=== PATIENT | male | born 1980 | race Caucasian/White ===

== ENCOUNTER → 2018-04-15 | Outpatient (REF) | payer BC ==
[2018-04-15 16:38] LABS: PLATELET COUNT, AUTOMATED 158 K/uL (150-450)
== END ==
PROVIDERS: ATTEND Nurse Practitioner Family
DX: R19.7 Diarrhea, unspecified (principal); R11.11 Vomiting without nausea; R10.9 Unspecified abdominal pain
CPT/HCPCS: 82040; 82247; 82274; 82310; 82374; 82435; 82565; 82947; 83630; 84075; 84132; 84155; 84295; 84450; 84460; 84520; 85025; 87177; 87324; 87449

== ENCOUNTER → 2018-04-15 | Outpatient (CLI) | payer BC ==
[~2018-04-15] MED LIST: IOPAMIDOL 76% 75 ML INFUS BTL 75 ML ONE
--- NOTE | 2018-04-15 18:55 | RADIOLOGY IMAGING REPORT ---
FACILITY: [facility] [place] PATIENT NAME: Ana Nava : 1980 MR: [id number] V: [id number] EXAM DATE: ORDERING PHYSICIAN: JUNIOR MONDRAGON TECHNOLOGIST: Location: [facility] [place] Patient: Ana Nava : 1980 Visit/Account:[id number] Date of Sevice: 04/15/2018 CT abdomen and pelvis with IV contrast Indication: Right-sided abdomen pain Comparison: None available. . Technique: Axial CT images were obtained through the abdomen and pelvis during injection of nonioni c iodinated intravenous contrast. Reformatted coronal and sagittal images were also obtained. One of the following dose optimization techniques was utilized in the performance of this exam: Autom ated exposure control; adjustment of the mA and/or kV according to the patient's size; or use of an i terative reconstruction technique. Specific details can be referenced in the facility's radiology C T exam operational policy. Contrast: 75 ml of Isovue-370 IV contrast. Findings: Lower lung reyes: Limited views lower lung field are unremarkable. Liver: The posterior left lobe liver does show 1.9 cm hypodense lesion which is not a simple cyst. Th e liver shows no other focal abnormality. Biliary: Gallbladder appears unremarkable as well as the intra and extra hepatic biliary system. Pancreas: Normal appearance. Spleen: Normal appearance. Adrenal glands: Unremarkable. Kidneys / retroperitoneum: No evidence of nephrolithiasis or hydronephrosis. No focal abnormality. Bowel / peritoneum / mesenteries: The small bowel right abdomen does show mild diffuse wall thickenin g without focal abnormality or obstruction. The remaining small bowel is unremarkable. There are a fe w diverticula seen along the descending and sigmoid colon without pericolonic inflammation. The colon shows no other focal abnormality. The appendix is normal. The stomach is unremarkable. No free air, free fluid, fluid collections or areas of inflammation. Lymph node assessment: No pathologic adenopathy identified. Pelvic structures: Appear unremarkable. Vessels: No significant atherosclerotic calcifications seen throughout a nonaneurysmal abdominal aort a and branches. Musculoskeletal / Body wall: No acute or aggressive osseous abnormality. Hemangioma in the T11 verteb ral body. Small sclerotic foci seen left femoral neck is likely a bone island. IMPRESSION: 1. The small bowel within the right abdomen does show mild wall thickening diffusely without focal ab normality or obstruction. This may represent early enteritis. 2. Diverticulosis without radiographic indication diverticulitis. 3. Left lobe liver does show 1.9 cm hypodense lesion which is not simple cyst. This is indeterminate on this exam. Suggest a follow-up nonemergent MRI of the liver, without and with contrast, for furthe r evaluation. I called report to JUNIOR MONDRAGON at 04/15/2018 6:50 PM. Report Dictated By: Bart Washington at 04/15/2018 6:41 PM Report E-Signed By: Bart Washington at 04/15/2018 6:51 PM WSN:[id number]
== END ==
LOC: CT 17:46
PROVIDERS: ATTEND Nurse Practitioner Family
DX: K57.90 Diverticulosis of intestine, part unspecified, without perforation or abscess without bleeding (principal); R16.0 Hepatomegaly, not elsewhere classified
CPT/HCPCS: 74177; Q9967

== ENCOUNTER → 2018-08-05 | Outpatient (CLI) | payer BC ==
[~2018-08-05] MED LIST changes: +GADOBENATE 529MG/1ML 15ML VIAL IVP ONE; -IOPAMIDOL 76% 75 ML INFUS BTL 75 ML ONE; +NS(*) 0.9% 50 ML BAG 50 ML ONE
--- NOTE | 2018-08-05 17:26 | RADIOLOGY IMAGING REPORT ---
FACILITY: [facility] PATIENT NAME: Ana Nava : 1980 MR: [id number] V: [id number] EXAM DATE: ORDERING PHYSICIAN: YAMILE SPICER TECHNOLOGIST: Location: [facility] - [place], [place] Patient: Ana Nava : 1980 Visit/Account:[id number] Date of Sevice: 08/05/2018 ABDOMEN W W/O CONTRAST HISTORY: Liver mass, abnormal CT scan TECHNIQUE: Multiplanar multisequence magnetic resonance imaging of the abdomen with intravenous cont rast. CONTRAST: 15 cc of MultiHance COMPARISON: CT scan 04/15/2018 FINDINGS: Liver: Measures 17.2 cm in craniocaudal length. On the delayed enhanced images, there is a subtle hy pointense lesion segment IVb of the liver (series 20, image 32) which likely represents benign focal fat adjacent to gallbladder fossa. No concerning liver lesions are seen. Hepatic veins and portal v eins are patent. Gallbladder and bile ducts: Negative. The common bile duct measures 3 mm. Spleen: Slightly prominent measures 14.5 cm in length but uniform in signal intensity. Adrenal glands: Negative. Pancreas: Negative. Kidneys: Negative. Vessels: Normal Bowel/peritoneum/mesentery: Negative Lymph nodes: Negative Bones/soft tissues: T12 vertebral body hemangioma is noted which is increased on T2 and demonstrates enhancement. Prior CT scan demonstrates classic imaging features for a benign vertebral body hemangi sebastian. Visualized lung bases: Negative Visualized pelvis: Negative Other findings: None significant IMPRESSION: 1. 1 cm benign-appearing area of focal fat segment IVb of the liver corresponding to the abnormality seen on CT scan. No concerning liver lesions are seen. 2. Mildly enlarged spleen measuring 14.5 cm in length, likely benign. 3. T12 benign vertebral body hemangioma. Report Dictated By: Bart Stoddard MD at 08/05/2018 5:09 PM Report E-Signed By: Bart Stoddard MD at 08/05/2018 5:22 PM WSN:[id number]
== END ==
LOC: MRI 07:14
PROVIDERS: ATTEND Family Medicine
DX: R16.1 Splenomegaly, not elsewhere classified (principal); R16.0 Hepatomegaly, not elsewhere classified; D18.09 Hemangioma of other sites
CPT/HCPCS: 74183; A9577; J7050

== ENCOUNTER 2019-02-08 14:23 | Emergency (ER) | payer SELFPAY ==
--- NOTE | 2019-02-08 14:25 | ER Report ---
History and Physical Time Seen By MD: 14:24 (PRICE CHUNG MD) HPI/ROS CHIEF COMPLAINT: Fever, body aches, sinus pressure HISTORY OF PRESENT ILLNESS: The patient is an otherwise healthy 39-year-old male who states that for the past 3 weeks she's been having fevers and body aches no cough or shortness of breath noted is also complaining of headache and some ear pain. Today he states that he starting to feel pressure behind his right eye. He denies any neck or back pain. He denies any new rashes. There is no history of recent travel or recent antibiotic use. No known ill contacts at home. Patient denies any diarrhea however states that he did have some vomiting last evening. also states patient has been having night sweats. Patient last took acetaminophen at 10 AM. REVIEW OF SYSTEMS: Constitutional: Cyclic fevers Eyes: No discharge. ENT: Ear pain and sinus pressure Cardiovascular: No chest pain, no palpitations. Respiratory: No cough, no shortness of breath. Gastrointestinal: No abdominal pain, no vomiting. Genitourinary: No hematuria. Musculoskeletal: Body aches Skin: No rashes. Neurological: Headache (PRICE CHUNG MD) Allergies: Coded Allergies: No Known Drug Allergies (Unverified , 02/08/19) Past Medical/Surgical History Noncontributory towards this chief complaint (PRICE CHUNG MD) Constitutional Vital Sign - Last 24 Hours 02/08/19 14:27 Temp 98.4 Pulse 103 Resp 24 B/P (MAP) 139/91 Pulse Ox 93 O2 Delivery Room Air (LAURORA,PATRICIA V DO) Physical Exam General/Constitutional: Patient is awake, alert, nontoxic and in no acute re spiratory distress. Head: Normocephalic and atraumatic. Eyes: Conjunctival clear, Pupils are equal and reactive to light. Extraocular muscles are intact and symmetrical. Sclera are clear and anicteric. Ears: Unable to measure eyes the right TM secondary to cerumen impaction, left TM appears clear. Nares shows some boggy indurated turbinates with some purulent discharge. Oropharyngeal: Mucous membranes are moist. There is no pharyngeal erythema or exudate. There are no palatal petechiae. Uvula is midline and symmetrical. Neck: Supple, no adenopathy. Cardiovascular: Heart is regular rate and rhythm without audible murmurs, rubs or gallops. Pulmonary: Lungs are clear to auscultation bilaterally. There are no wheezes, rales, or rhonchi. Chest rise is symmetrical Abdomen: Soft, nontender, no guarding or peritoneal signs. Extremities: No gross deformities, No peripheral cyanosis. Able to move all 4 extremities. Neuro: Alert and oriented X3, Skin: No rashes, skin is warm dry and well perfused. (PRICE CHUNG MD) Medical Decision Making Data Points Result Diagram: 02/08/19 1517 02/08/19 1517 Laboratory Hematology Test 02/08/19 00:00 02/08/19 15:17 02/08/19 16:43 02/08/19 17:14 Influenza Virus Type A (PCR) Negative (NEGATIVE) Influenza Virus Type B (PCR) Negative (NEGATIVE) Red Blood Count 4.64 M/uL (4.00-5.60) Mean Corpuscular Volume 82.1 fL (80.0-96.0) Mean Corpuscular Hemoglobin 26.9 pg (26.0-33.0) Mean Corpuscular Hemoglobin Concent 32.7 g/dL (32.0-36.0) Red Cell Distribution Width 13.6 % (11.5-14.5) Mean Platelet Volume 7.0 fL (7.2-11.1) Neutrophils (%) (Auto) 73.9 % (39.4-72.5) Lymphocytes (%) (Auto) 9.1 % (17.6-49.6) Monocytes (%) (Auto) 12.7 % (4.1-12.4) Eosinophils (%) (Auto) 3.3 % (0.4-6.7) Basophils (%) (Auto) 1.0 % (0.3-1.4) Nucleated RBC Relative Count (auto) 0.0 /100WBC Neutrophils # (Auto) 7.0 K/uL (2.0-7.4) Lymphocytes # (Auto) 0.9 K/uL (1.3-3.6) Monocytes # (Auto) 1.2 K/uL (0.3-1.0) Eosinophils # (Auto) 0.3 K/uL (0.0-0.5) Basophils # (Auto) 0.1 K/uL (0.0-0.1) Nucleated RBC Absolute Count (auto) 0.00 K/uL Sodium Level 138 mmol/L (137-145) Potassium Level 4.0 mmol/L (3.5-5.0) Chloride Level 101 mmol/L (98-107) Carbon Dioxide Level 30 mmol/L (22-30) Blood Urea Nitrogen 17 mg/dl (9-21) Creatinine 0.70 mg/dl (0.66-1.25) Glomerular Filtration Rate Calc > 60.0 Random Glucose 129 mg/dl (75-110) Calcium Level 8.7 mg/dl (8.4-10.2) Total Bilirubin < 0.1 mg/dl (0.2-1.3) Aspartate Amino Transf (AST/SGOT) 27 U/L (0-35) Alanine Aminotransferase (ALT/SGPT) 59 U/L (0-56) Alkaline Phosphatase 93 U/L (0-126) Total Protein 7.0 g/dl (6.3-8.2) Albumin 3.6 g/dl (3.5-5.0) Urine Color Yellow Urine Clarity Clear Urine pH 6.0 pH (4.8-9.5) Urine Specific [place] 1.026 Urine Protein Negative mg/dL (NEGATIVE) Urine Glucose (UA) Negative mg/dL (NEGATIVE) Urine Ketones Negative mg/dL (NEGATIVE) Urine Blood Negative (NEGATIVE) Urine Nitrite Negative (NEGATIVE) Urine Bilirubin Negative (NEGATIVE) Urine Urobilinogen Negative mg/dL (0.2-1.9) Urine Leukocyte Esterase Negative (NEGATIVE) Urine RBC 4 /HPF (0-2/HPF) Urine WBC 1 /HPF (0-5/HPF) Urine Squamous Epithelial Cells None /LPF (</=FEW) Urine Bacteria Negative /HPF (NONE-FEW) Urine Mucus Few /HPF (NONE-FEW) Monoscreen Negative (NEGATIVE) Chemistry Test 02/08/19 00:00 02/08/19 15:17 02/08/19 16:43 02/08/19 17:14 Influenza Virus Type A (PCR) Negative (NEGATIVE) Influenza Virus Type B (PCR) Negative (NEGATIVE) White Blood Count 9.5 k/uL (4.5-11.0) Red Blood Count 4.64 M/uL (4.00-5.60) Hemoglobin 12.5 g/dL (14.0-18.0) Hematocrit 38.1 % (42.0-52.0) Mean Corpuscular Volume 82.1 fL (80.0-96.0) Mean Corpuscular Hemoglobin 26.9 pg (26.0-33.0) Mean Corpuscular Hemoglobin Concent 32.7 g/dL (32.0-36.0) Red Cell Distribution Width 13.6 % (11.5-14.5) Platelet Count 297 K/uL (150-450) Mean Platelet Volume 7.0 fL (7.2-11.1) Neutrophils (%) (Auto) 73.9 % (39.4-72.5) Lymphocytes (%) (Auto) 9.1 % (17.6-49.6) Monocytes (%) (Auto) 12.7 % (4.1-12.4) Eosinophils (%) (Auto) 3.3 % (0.4-6.7) Basophils (%) (Auto) 1.0 % (0.3-1.4) Nucleated RBC Relative Count (auto) 0.0 /100WBC Neutrophils # (Auto) 7.0 K/uL (2.0-7.4) Lymphocytes # (Auto) 0.9 K/uL (1.3-3.6) Monocytes # (Auto) 1.2 K/uL (0.3-1.0) Eosinophils # (Auto) 0.3 K/uL (0.0-0.5) Basophils # (Auto) 0.1 K/uL (0.0-0.1) Nucleated RBC Absolute Count (auto) 0.00 K/uL Glomerular Filtration Rate Calc > 60.0 Calcium Level 8.7 mg/dl (8.4-10.2) Total Bilirubin < 0.1 mg/dl (0.2-1.3) Aspartate Amino Transf (AST/SGOT) 27 U/L (0-35) Alanine Aminotransferase (ALT/SGPT) 59 U/L (0-56) Alkaline Phosphatase 93 U/L (0-126) Total Protein 7.0 g/dl (6.3-8.2) Albumin 3.6 g/dl (3.5-5.0) Urine Color Yellow Urine Clarity Clear Urine pH 6.0 pH (4.8-9.5) Urine Specific [place] 1.026 Urine Protein Negative mg/dL (NEGATIVE) Urine Glucose (UA) Negative mg/dL (NEGATIVE) Urine Ketones Negative mg/dL (NEGATIVE) Urine Blood Negative (NEGATIVE) Urine Nitrite Negative (NEGATIVE) Urine Bilirubin Negative (NEGATIVE) Urine Urobilinogen Negative mg/dL (0.2-1.9) Urine Leukocyte Esterase Negative (NEGATIVE) Urine RBC 4 /HPF (0-2/HPF) Urine WBC 1 /HPF (0-5/HPF) Urine Squamous Epithelial Cells None /LPF (</=FEW) Urine Bacteria Negative /HPF (NONE-FEW) Urine Mucus Few /HPF (NONE-FEW) Monoscreen Negative (NEGATIVE) Urinalysis Test 02/08/19 16:43 Urine Color Yellow Urine Clarity Clear Urine pH 6.0 pH (4.8-9.5) Urine Specific [place] 1.026 Urine Protein Negative mg/dL (NEGATIVE) Urine Glucose (UA) Negative mg/dL (NEGATIVE) Urine Ketones Negative mg/dL (NEGATIVE) Urine Blood Negative (NEGATIVE) Urine Nitrite Negative (NEGATIVE) Urine Bilirubin Negative (NEGATIVE) Urine Urobilinogen Negative mg/dL (0.2-1.9) Urine Leukocyte Esterase Negative (NEGATIVE) Urine RBC 4 /HPF (0-2/HPF) Urine WBC 1 /HPF (0-5/HPF) Urine Squamous Epithelial Cells None /LPF (</=FEW) Urine Bacteria Negative /HPF (NONE-FEW) Urine Mucus Few /HPF (NONE-FEW) (PATRICIA CAMEJO DO) ED Course/Re-evaluation Clinical Indication for ER IV: IV Access ED Course 02/08/2019 2:45:52 pm in with report of febrile illness for the past 3 weeks. There was a recent travel to [facility] prior to the onset of symptoms. There was contact with the child that had influenza and bronchitis-like symptoms. Patient has had persistent symptoms for the past 3 weeks. We'll check CBC CMP influenza screen chest x-ray urinalysis and CT of the sinuses. Decision to Disposition Date: Feb 08, 2019 Decision to Disposition Time: 17:00 (PRICE CHUNG MD) ED Course 02/08/2019 5:24:13 pm Pt signed out to me pending CT and chest xray. Both images were stable. Reexamined the patient and discussed his symptoms. Pt sta elsie his symptoms started about 3 weeks ago with muscle aches. Then developed fevers, headaches, nasal congestion. Stats that symptoms started a few days prior to his trip to [place]. Pt currently has FUO. Will obtain blood cultures. will also obtain lyme titer and [place] tick fever ([place] fever) cultures as well. Pt as no known rash or tick bite however symptoms could be related. Pt will need close follow up with pcp. Called the lab to determine how to order test or [place] tick fever. Lab gave me the code # for the test and had me order it under [facility] [place]. 02/08/2019 5:40:42 pm Spoke with patient and he is aware that we have tests that are pending. will follow up. Decision to Disposition Date: Feb 08, 2019 Decision to Disposition Time: 17:41 (PATRICIA CAMEJO DO) Depart Departure Latest Vital Signs Vital Signs Date Time Temp Pulse Resp B/P (MAP) Pulse Ox O2 Delivery O2 Flow Rate FiO2 02/08/19 14:27 98.4 103 24 139/91 93 Room Air (PATRICIA CAMEJO DO) Impression: Primary Impression: Fever of unknown origin Condition: Condition Unchanged Disposition: HOME OR SELF-CARE Patient Instructions: Fever in Adults (ED) Additional Instructions: Your blood work in the emergency room was stable. We do have blood cultures pending. We also sent off tick borne diseases ([place] tick fever/[place] tick and lyme ds) which are pending. Follow up with your doctor. Return if symptoms worsen prior to seeing your doctor. PRICE CHUNG MD Feb 08, 2019 14:25 PATRICIA CAMEJO DO Feb 08, 2019 17:41
[2019-02-08 14:27] VITALS: BP 139/91
[2019-02-08] MEDS ORDERED: NS(*) 0.9% 1000 ML BAG 1,000 ML IV ONE (14:46)
[2019-02-08] MEDS ORDERED: ONDANSETRON 4 MG/2 ML VIAL IVP ONE (14:50)
[2019-02-08] MEDS ORDERED: KETOROLAC 15 MG/ML VIAL IVP ONE (14:50)
[2019-02-08 15:25] LABS: PLATELET COUNT, AUTOMATED 297 K/uL (150-450)
--- NOTE | 2019-02-08 16:23 | RADIOLOGY IMAGING REPORT ---
FACILITY: [facility] - [place], [place] PATIENT NAME: Ana Nava : 1980 MR: [id number] V: [id number] EXAM DATE: ORDERING PHYSICIAN: PRICE CHUNG TECHNOLOGIST: Location: [facility] Patient: Ana Nava : 1980 Visit/Account:[id number] Date of Sevice: 02/08/2019 Examination: CHEST PA LAT Comparison: None. History: Fever. Findings: Cardiac and hilar contour size is within normal limits. No consolidation, nodule, or peribronchial inflammation. No pneumothorax, edema, or effusion. Osseous structures are intact. IMPRESSION: Negative chest. Report Dictated By: Anthony Mckinley MD at 02/08/2019 4:18 PM Report E-Signed By: Anthony Mckinley MD at 02/08/2019 4:19 PM WSN:[id number]
--- NOTE | 2019-02-08 16:29 | RADIOLOGY IMAGING REPORT ---
FACILITY: [facility] PATIENT NAME: Ana Nava : 1980 MR: [id number] V: [id number] EXAM DATE: ORDERING PHYSICIAN: PRICE CHUNG TECHNOLOGIST: [place] [facility] [place] Patient: Ana Nava : 1980 Visit/Account:[id number] Date of Sevice: 02/08/2019 Examination: CT SINUS W/O CON Comparison: None. History: Fever and sinus pressure. Procedure: Multiplanar noncontrast CT of the paranasal sinuses. One of the following dose optimization techniques was utilized in the performance of this exam: Autom ated exposure control; adjustment of the mA and/or kV according to the patient's size; or use of an i terative reconstruction technique. Specific details can be referenced in the facility's radiology C T exam operational policy. Findings: The frontal sinuses, ethmoid air cells, sphenoid sinuses, and maxillary sinuses are clear a nd well aerated. The frontal recesses and ostiomeatal units are widely patent. The mastoid air cells are well aerated. Mild rightward deviation of the bony nasal septum with a smal l right-sided nasal septal spine. The nasal passage is otherwise unremarkable. No fractures identified. Temporomandibular joint alignment is within normal limits. No mass effect in the visualized brain. Globes and orbital contents are unremarkable. Visualized faci al soft tissues are unremarkable. IMPRESSION: Negative CT of the paranasal sinuses. Report Dictated By: Anthony Mckinley MD at 02/08/2019 4:20 PM Report E-Signed By: Anthony Mckinley MD at 02/08/2019 4:26 PM WSN:[id number]
== END 2019-02-08 18:17 | disposition home or self-care (01) ==
LOC: ER 14:26
DX: R50.9 Fever, unspecified (principal)
CPT/HCPCS: 70486; 71046; 81001; 85025; 86308; 86618; 87040; 87502; 87797; 96361; 96374; 96375; 99284; J1885; J2405; J7030; 82040; 82247; 82310; 82374; 82435; 82565; 82947; 84075; 84132; 84155; 84295; 84450; 84460; 84520

== ENCOUNTER → 2019-02-25 | Outpatient (REF) | payer SELFPAY | LOC: ZZSENDIN 14:36 | PROVIDERS: ATTEND Family Medicine | DX: R68.83 Chills (without fever) (principal); R61 Generalized hyperhidrosis | CPT/HCPCS: 84443; 85651; 86140; 86663; 86664; 86665 ==